=== PATIENT | female | born 1970 | race American Indian/Alaskan Native ===

== ENCOUNTER 2018-04-25 13:22 | Emergency (ER) | payer SELFPAY ==
--- NOTE | 2018-04-25 14:08 | Emergency Department Report ---
Blank Doc - Documentation Documentation: This is a 48-year-old female that bilateral knee swelling, body aches, and sub jective fever. Denies any other complaints. This initial assessment diagnostic orders/clinical plan/treatment(s) is/are subject to change based on patient's health status, clinical progression and re- assessment by fellow clinical providers in the ED. Further treatment and workup at subsequent clinical providers discretion. Patient/guardians urged not to elope from ED s their condition may be serious if not clinically assessed and managed. Initial orders include: 1-Patient sent to [facility] for further evaluation and treatment 2- labs
[2018-04-25 14:52] LABS: Bacteria,Urine 2+ /HPF (Negative); Bilirubin,Urine NEG (Negative); Blood,Urine MOD (Negative); Color,Urine Yellow (Yellow); Mucus,Urine 1+ /HPF
[2018-04-25 14:53] LABS: WBC,Urine > 182.0 /HPF (0.0-6.0)
[2018-04-25 14:57] LABS: Basophils # (Auto) 0.1 K/mm3 (0.0-0.1); Basophils % (Auto) 0.6 % (0.0-1.8); Eosinophils # (Auto) 0.2 K/mm3 (0.0-0.4); Eosinophils % (Auto) 1.2 % (0.0-4.3); Hematocrit 33.5 % (30.3-42.9); Lymphocytes % (Auto) 6.2 % (13.4-35.0); Mean Corpuscular HGB Conc 33 % (30-34); Mean Corpuscular Volume 82 fl (79-97); Monocytes # (Auto) 0.5 K/mm3 (0.0-0.8); Monocytes % (Auto) 2.9 % (0.0-7.3); Platelet Count 625 K/mm3 (140-440); Red Blood Count 4.09 M/mm3 (3.65-5.03); Red Cell Distribution Width 19.1 % (13.2-15.2)
[2018-04-25 15:11] LABS: BUN/Creatinine Ratio 24; Blood Urea Nitrogen 12 mg/dL (7-17); Calcium 8.5 mg/dL (8.4-10.2); Hemolysis Index 2
[2018-04-25] MEDS ORDERED: NACL 0.9% 1000 ML 1,000 ML IV ONE ×2 (15:52→17:09)
[2018-04-25] MEDS ORDERED: NORCO 7.5/325 PO ONE (15:54)
--- NOTE | 2018-04-25 15:54 | Emergency Department Report ---
ED Abdominal Pain HPI - General Chief Complaint: Nausea/Vomiting/Diarrhea Stated Complaint: BODY ACHE/SWOLLEN KNEES Time Seen by Provider: 04/25/18 14:06 Source: patient Mode of arrival: Ambulatory Limitations: No Limitations - History of Present Illness Initial Comments: Patient is a 48-year-old -[place] female who comes to the emergency room today with vague complaints of body aches and chills. She states that she's been feeling bad for 2 days. She has had some nausea and diarrhea. She states that she has not had any vomiting. She does not have abdominal pain per se just feels achy all over. She also endorses dysuria. She denies vaginal bleeding. Patient is ambulatory on admission but appears ill. She is afebrile on admission with a temperature of 98 orally. Heart rate on exam in triage was 100. Patient states that she has been sick off and on for the last couple months and Dr. Mays with her primary care physician. She has had various complaints none of which seem related. It sounds like she may have an autoimmune disorder. I'll allow patient to verbalize her concerns about all this and given her some direction for follow-up. She will need to overcome this acute illness prior to any beta workup. Patient was scheduled to have fibroid surgery but due to her illness they canceled it. It has been rescheduled for May. Patient has been seen by an [employer] over the last month and has had no female related issues other than the fibroids. Patient is on no home medications. She has no allergies. She has no primary care doctor. -: Gradual, days(s) Severity: moderate Severity scale (0 -10): 8 Improves With: nothing Worsens With: nothing Associated Symptoms: chills, dysuria. denies: nausea, vomiting, diarrhea, fever, constipation, hematemesis, hematochezia, melena, hematuria, anorexia, syncope Treatments Prior to Arrival: NSAIDs - Related Data Previous Rx's Medication Instructions Recorded Last Taken Type Sulfamethoxazole/Trimethoprim 1 each PO BID #10 tablet 04/25/18 Unknown Rx [Bactrim Ds Tablet] traMADol [Ultram] 50 mg PO Q6HR PRN #10 tablet 04/25/18 Unknown Rx Allergies Allergy/AdvReac Type Severity Reaction Status Date / Time No Known Allergies Allergy Unverified 04/25/18 13:24 ED Review of Systems ROS: Stated complaint: BODY ACHE/SWOLLEN KNEES Other details as noted in HPI Comment: All other systems reviewed and negative Constitutional: see HPI, chills Eyes: denies: eye pain ENT: denies: ear pain Cardiovascular: denies: chest pain, palpitations Endocrine: denies: excessive sweating, flushing Gastrointestinal: as per HPI, nausea, diarrhea. denies: vomiting Genitourinary: as per HPI, urgency, frequency. denies: hematuria, discharge, abnormal menses Musculoskeletal: as per HPI, myalgia Skin: denies: rash Neurological: denies: headache Psychiatric: denies: anxiety Hematological/Lymphatic: denies: easy bleeding ED Past Medical Hx - Past Medical History Previous Medical History?: Yes Additional medical history: fibroids - Surgical History Past Surgical History?: No - Family History Family history: no significant - Social History Smoking Status: Current Every Day Smoker Substance Use Type: None - Medications Home Medications: Home Medications Medication Instructions Recorded Confirmed Last Taken Type Sulfamethoxazole/Trimethoprim 1 each PO BID #10 tablet 04/25/18 Unknown Rx [Bactrim Ds Tablet] traMADol [Ultram] 50 mg PO Q6HR PRN #10 tablet 04/25/18 Unknown Rx ED Physical Exam - General Limitations: No Limitations General appearance: alert - Head Head exam: Present: atraumatic - Eye Eye exam: Present: PERRL - ENT ENT exam: Present: mucous membranes moist - Neck Neck exam: Present: normal inspection - Respiratory Respiratory exam: Present: normal lung sounds bilaterally - Cardiovascular Cardiovascular Exam: Present: regular rate - GI/Abdominal GI/Abdominal exam: Present: soft, normal bowel sounds. Absent: distended, tenderness, guarding, rebound, rigid, diminished bowel sounds, hyperactive bowel sounds, hypoactive bowel sounds, organomegaly, mass, bruit, pulsatile mass, hernia - Rectal Rectal exam: Present: deferred - Extremities Exam Extremities exam: Present: normal inspection - Back Exam Back exam: Present: normal inspection, full ROM, CVA tenderness (L) (mild). Absent: tenderness, CVA tenderness (R) - Neurological Exam Neurological exam: Present: alert, oriented X3, CN II-XII intact, normal gait - Psychiatric Psychiatric exam: Present: normal affect, normal mood. Absent: depressed, agitated - Skin Skin exam: Present: warm, dry, intact ED Course Vital Signs 04/25/18 04/25/18 04/25/18 14:07 16:29 17:51 Temperature 98.8 F 99.0 F 98.7 F Pulse Rate 100 H 94 H 97 H Respiratory 18 20 18 Rate Blood Pressure 132/74 121/67 Blood Pressure 108/56 [Left] O2 Sat by Pulse 98 97 94 Oximetry - Reevaluation(s) Reevaluation #1: 04/25/18 17:35 TEMP RECHECK 98.8 ORAL HR 90 on reassessment pt is felling better ED Medical Decision Making - Lab Data Result diagrams: 04/25/18 14:43 04/25/18 14:43 - Medical Decision Making 2 L NS IV antibiotics medicated for pain 1700 on reexam pt feeling better will dc home with dc poc she is going with family and reliable for follow up Labs 04/25/18 04/25/18 04/25/18 14:19 14:41 14:43 WBC 16.3 H RBC 4.09 Hgb 11.0 Hct 33.5 MCV 82 MCH 27 L MCHC 33 RDW 19.1 H Plt Count 625 H Lymph % (Auto) 6.2 L [place] % (Auto) 2.9 Eos % (Auto) 1.2 Baso % (Auto) 0.6 Lymph # 1.0 L [place] # 0.5 Eos # 0.2 Baso # 0.1 Seg Neutrophils % 89.1 H Seg Neutrophils # 14.6 H Sodium Potassium Chloride Carbon Dioxide Anion Gap BUN Creatinine Estimated GFR BUN/Creatinine Ratio Glucose Calcium Urine Color Yellow Urine Turbidity Cloudy Urine pH 5.0 Ur Specific [place] 1.020 Urine Protein 30 mg/dl Urine Glucose (UA) Neg Urine Ketones Neg Urine Blood Mod Urine Nitrite Pos Urine Bilirubin Neg Urine Urobilinogen 2.0 Ur Leukocyte Esterase Lg Urine WBC (Auto) > 182.0 H Urine RBC (Auto) 18.0 U Epithel Cells (Auto) < 1.0 Urine Bacteria (Auto) 2+ Urine Mucus 1+ Urine HCG, Qual Negative 04/25/18 14:43 WBC RBC Hgb Hct MCV MCH MCHC RDW Plt Count Lymph % (Auto) [place] % (Auto) Eos % (Auto) Baso % (Auto) Lymph # [place] # Eos # Baso # Seg Neutrophils % Seg Neutrophils # Sodium 132 L Potassium 4.3 Chloride 96.1 L Carbon Dioxide 23 Anion Gap 17 BUN 12 Creatinine 0.5 L Estimated GFR > 60 BUN/Creatinine Ratio 24 Glucose 103 H Calcium 8.5 Urine Color Urine Turbidity Urine pH Ur Specific [place] Urine Protein Urine Glucose (UA) Urine Ketones Urine Blood Urine Nitrite Urine Bilirubin Urine Urobilinogen Ur Leukocyte Esterase Urine WBC (Auto) Urine RBC (Auto) U Epithel Cells (Auto) Urine Bacteria (Auto) Urine Mucus Urine HCG, Qual - Differential Diagnosis ro uti/pyelo Critical care attestation.: If time is entered above; I have spent that time in minutes in the direct care of this critically ill patient, excluding procedure time. ED Disposition Clinical Impression: Pyelonephritis Disposition: - TO HOME OR SELFCARE Is pt being admited?: No Does the pt Need Aspirin: No Condition: Stable Instructions: Urinary Tract Infection in Women (ED), Acute Pyelonephritis (ED) Additional Instructions: REST HYDRATE WELL WITH WATER MOTRIN OR TYLENOL FOR PAIN OR FEVER MED ORDERED TODAY FOLLOW UP WITH PCP REFERRAL BELOW LET THEM KNOW EVERYTHING THAT HAS BEEN GOING ON SO THEY CAN COORDINATE YOUR CARE GOING INTO YOUR SURGERY Prescriptions: Sulfamethoxazole/Trimethoprim [Bactrim Ds Tablet] 1 each PO BID #10 tablet traMADol [Ultram] 50 mg PO Q6HR PRN #10 tablet PRN Reason: Pain Referrals: PABLO ZUNIGA MD [Primary Care Provider] - 3-5 Days [facility] [Outside] - 3-5 Days Time of Disposition: 16:57
[2018-04-25] MEDS ORDERED: MAXIPIME/NS 2 GM/100 ML 2 GM/100 ML BAG IV SCH (16:00)
[2018-04-25 16:49] LABS: HCG Qualitative,Urine Negative (Negative)
[2018-04-25 17:52] VITALS: BP 108/56
== END 2018-04-25 18:38 | disposition home or self-care (01) ==
LOC: ED 13:22
DX: N12 Tubulo-interstitial nephritis, not specified as acute or chronic (principal); M79.18 Myalgia, other site; F17.200 Nicotine dependence, unspecified, uncomplicated
CPT/HCPCS: 36415; 80048; 81001; 81025; 85025; 96361; 96365; 99283; J0692; J7030